=== PATIENT | male | born 1990 | race Caucasian/White ===

== ENCOUNTER 2017-02-08 23:40 | Emergency (ER) | payer OTHER ==
[2017-02-08 23:47] VITALS: TEMP 98.4
[2017-02-08] MEDS ORDERED: ONDANSETRON 4 MG/2 ML VIAL ONE (23:52)
[2017-02-09] MEDS ORDERED: NS 1,000 ML IV ONE ×3 (00:02→00:03)
[2017-02-09] MEDS ORDERED: ONDANSETRON 4 MG/2 ML VIAL IVP ONE ×2 (00:02→00:03)
[2017-02-09] MEDS ORDERED: FAMOTIDINE 20 MG/NACL 50 ML IV ONE (00:03)
[2017-02-09 00:27] LABS: ANION GAP 23 mEq/L (8-16); CALCIUM 10.1 mg/dL (8.5-10.4); CARBON DIOXIDE 18 mEq/l (22-31); CHLORIDE 99 mEq/L (97-110); CREATININE 1.1 mg/dL (0.7-1.3); GLOMERULAR FILTRATION RATE > 60; GLUCOSE 107 mg/dL (70-100); SODIUM 140 mEq/L (134-144)
[2017-02-09] MEDS ORDERED: DIAZEPAM 10 MG/2 ML SYR IVP ONE (00:57)
[2017-02-09] MEDS ORDERED: DIAZEPAM 10 MG/2 ML SYR ONE (00:58)
[2017-02-09 01:09] VITALS: O2SAT 98
--- NOTE | 2017-02-09 01:09 | EDPHY ---
H & P Time Seen by Provider: 02/09/17 00:31 HPI/ROS: HPI Vomiting, dehydration. 26-year-old male by private vehicle with his girlfriend. This patient reports that he has a drinking problem. He was drinking for most the day yesterday. He then started vomiting. He has been vomiting for the last 8-10 hours. He also describes feeling very anxious at this time. He describes having generalized abdominal discomfort. He is concerned about a abdominal hernia. No diarrhea. He denies any change in diet. No ill contacts. ROS: Constitutional: No fever, no chills. No weakness. Eyes: No discharge. No changes in vision. ENT: No sore throat. No nasal congestion or rhinorrhea. Respiratory: No cough. No shortness of breath. Cardiac: No chest pain, no palpitations. Gastrointestinal: As above, no diarrhea. Genitourinary: No hematuria. No dysuria or increased frequency with urination. Musculoskeletal: No back pain. No neck pain. No myalgias or arthralgias. Skin: No rashes. Neurological: No headache. No focal weakness or altered sensation. Past medical history: Abdominal surgeries with hernia repair, orthopedic surgeries. Social history: Here with his girlfriend, history of alcohol abuse. Physical Exam: General Appearance: Alert, anxious. This patient is responding to questions appropriately and in full sentences. This patient appears well-hydrated and well-nourished. Eyes: Pupils equal and round no pallor or injection. No lid edema, erythema or injection. Respiratory: There are no retractions, lungs are clear to auscultation with good air movement bilaterally. Cardiovascular: Regular rate and rhythm. No murmur. Gastrointestinal: Abdomen is soft and nontender on palpation, no masses, bowel sounds present. Surgical scars from prior laparotomy. No focal tenderness at McBurney's point. No Mcnulty sign. Neurological: Motor sensory function is grossly intact. Cranial nerves are normal. Gait is normal. Skin: Warm and dry, no rashes. Musculoskeletal: Neck is supple and nontender. Extremities are symmetrical. All joints range without pain or impingement. Psychiatric: No agitation. No depression. Database: EKG: Imaging: Procedures: Emergency department course: IV placed. He was placed on a monitor. Vital signs reviewed. He is afebrile. Tachycardic. Very anxious. He was initially given IV Zofran from triage 20 mg of IV Pepcid. He was started on IV normal saline with 2-3 L to be given over the next 1-2 hours. 1:00 a.m., patient re-evaluated. He is feeling much better from a nausea standpoint. He is asking for oral fluids at this time. He states however that he feels very anxious. He was given 10 mg of IV Valium and started on 1/3 L of IV normal saline. He is concerned about his abdominal hernias. I discussed imaging with him. He has a nonsurgical benign abdominal exam. We will hold CT imaging for now. I feel that incarcerated hernia versus other surgical etiology of his presentation is unlikely. His presentation is consistent with an alcoholic gastritis and early alcohol withdrawal with anxiety. 2:00 a.m., patient re-evaluated. He is feeling much more comfortable. He is taking oral fluids. No vomiting. Vital signs reviewed. Heart rate currently 92. He feels comfortable going home and is requesting discharge. Repeat abdominal exam he is soft, nontender nondistended. I feel he is safe for discharge. I talked to him about his alcohol abuse. Follow-up and return to emergency department precautions reviewed. All of his questions were answered. He was discharged in good condition with his girlfriend who is driving. Differential Diagnosis: The differential diagnosis on this patient includes but is not limited to anxiety, alcohol abuse, alcohol related gastritis. Incarcerated hernia, bowel obstruction, other surgical etiology unlikely. This represents a partial list of diagnoses considered. These considerations are based on history, physical exam, past history, reassessment and diagnostic testing. Smoking Status: Never smoked Constitutional: Initial Vital Signs Temperature (C) 36.9 C 02/08/17 23:43 Heart Rate 136 H 02/08/17 23:43 Respiratory Rate 24 H 02/08/17 23:43 Blood Pressure 127/96 H 02/08/17 23:43 O2 Sat (%) 100 02/08/17 23:43 O2 Delivery Mode Nasal Cannula O2 (L/minute) 2 Allergies/Adverse Reactions: No Known Allergies Allergy (Verified 02/14/15 10:15) Home Medications: Medication Instructions Recorded NK [No Known Home Meds] 02/08/17 Medical Decision Making - Data Points Laboratory Results: Laboratory Results 02/09/17 00:00 02/09/17 00:00 Sodium 140 mEq/L mEq/L (134-144) Potassium 4.0 mEq/L mEq/L (3.5-5.2) Chloride 99 mEq/L mEq/L (97-110) Carbon Dioxide 18 mEq/l L mEq/l (22-31) Anion Gap 23 mEq/L H mEq/L (8-16) BUN 8 mg/dL mg/dL (7-23) Creatinine 1.1 mg/dL mg/dL (0.7-1.3) Estimated GFR > 60 Glucose 107 mg/dL H mg/dL (70-100) Calcium 10.1 mg/dL mg/dL (8.5-10.4) Medications Given: Discontinued Medications Diazepam (Valium Injection) 10 mg IVP EDNOW ONE Stop: 02/09/17 00:58 Last Admin: 02/09/17 01:05 Dose: 10 mg Sodium Chloride (Ns) 1,000 mls @ 0 mls/hr IV ONCE ONE PRN Reason: Wide Open Stop: 02/09/17 00:03 Last Admin: 02/09/17 00:30 Dose: 1,000 mls Sodium Chloride (Ns) 1,000 mls @ 0 mls/hr IV ONCE ONE PRN Reason: Wide Open Stop: 02/09/17 00:04 Last Admin: 02/09/17 01:05 Dose: 1,000 mls Sodium Chloride (Ns) 1,000 mls @ 0 mls/hr IV ONCE ONE PRN Reason: Wide Open Stop: 02/09/17 00:04 Last Admin: 02/09/17 00:05 Dose: 1,000 mls Famotidine/Sodium Chloride (Pepcid 20 Mg (Premix)) 50 mls @ 200 mls/hr IV EDNOW ONE Stop: 02/09/17 00:17 Last Admin: 02/09/17 00:40 Dose: 50 mls Ondansetron HCl (Zofran) 4 mg IVP EDNOW ONE Stop: 02/09/17 00:03 Last Admin: 02/09/17 00:55 Dose: Not Given Ondansetron HCl (Zofran) 4 mg IVP EDNOW ONE Stop: 02/09/17 00:04 Last Admin: 02/09/17 00:05 Dose: 4 mg Departure - Departure Disposition: Home, Routine, Self-Care Clinical Impression: Vomiting, Alcohol withdrawal, Anxiety, Alcohol abuse Condition: Good Instructions: Acute Nausea and Vomiting (ED), Abuse of Alcohol (ED) Additional Instructions: Read and follow provided instructions. Follow-up with your primary care physician in 1-2 days for re-evaluation. Or use the referrals I have provided you with. Drink lots of fluids and keep well hydrated. Gatorade mixed with water in a 1- 1 dilution is a good hydration fluid. Do not drink alcohol. Return to the emergency department for vomiting, worsening abdominal pain, or other serious concerns. Referrals: [facility],. [Clinic] - As per Instructions Mejia Andino MD [place] [place] - As per Instructions
[2017-02-09] MEDS ORDERED: ONDANSETRON 4MG PREPACK#2 BTL TAKEHOME ONE (02:33)
[2017-02-09 02:34] VITALS: BP 122/78; PULSE 98; RESP 18
== END 2017-02-09 02:37 | disposition home or self-care (01) ==
DX: R11.10 Vomiting, unspecified (principal); F10.239 Alcohol dependence with withdrawal, unspecified; F41.9 Anxiety disorder, unspecified
CPT/HCPCS: 96365; J2405